=== PATIENT | male | born 1955 ===

== ENCOUNTER 2024-08-04 22:42 | Emergency (ER) | payer MEDICARE ==
[~2024-08-04] VITALS: Ht 185.4 cm; Wt 65.8 kg
--- NOTE | 2024-08-04 23:08 | Physician Documentation ---
History of Present Illness Chief Complaint: Abdominal Pain Stated Complaint: ABDOMINAL PAIN Time Seen by MD: 23:08 Source: patient, family HPI 69-year-old male, history of multiple abdominal surgeries and bowel resection, who presents with abdominal pain and vomiting. He tells me he is traveling from out of town. They stopped and a [employer] food. Shortly afterwards, he develop severe generalized abdominal pain, and then had multiple episodes of vomiting. He states that after vomiting his pain has somewhat improved. He also then started to have some loose bowel movements. He reports a history of similar episodes in the past. He has been told sometimes that he has bowel blockages. He states it sometimes he just gets pain medication and his symptoms resolve without needing further intervention. No fevers, chills, or other infectious type symptoms. He does not take any medications for his symptoms. Medication Reconciliation Allergies: Coded Allergies: No Known Allergies (Unverified , 08/04/24) Past Medical History Past Surgical History: abdominal surgery Review of Systems Constitutional: Denies: fever Gastrointestinal: Reports: abdominal pain, nausea, vomiting, diarrhea Physical Exam Vital Signs: Heart Rate: 91, Respiratory Rate: 15, Pulse Oximetry: 97, Weight: 65.800 Physical Exam General: This is a pleasant and overall well-appearing middle-aged man, at bedside HEENT: Atraumatic, oropharynx is moist Heart: Mild tachycardic, appears regular Lungs: normal work of breathing, normal oxygen saturation on room air Abdomen: Soft, no significant distention. He does not have significant tenderness to deep palpation in all quadrants, no rebound or guarding. He does have multiple well-healed surgical scars over the abdomen Extremities: Warm and well-perfused Neuro: Alert and oriented, no focal deficits Psychiatric: Calm and cooperative with exam Progress Results/Orders Results/Orders Vital Signs 08/04/24 22:56 Pulse 91 Resp 15 Pulse Ox 97 Medical Decision Making Additional info obtained from: family Differential Dx:Considerations: Include: AAA, Bowel obstruction, Gastritis/PUD, Gastroenteritis Additional Comments Differential includes food poisoning or intermittent bowel blockage Assessment Here in the ED, the patient presents after severe abdominal pain with vomiting, which has significantly improved. At time of my evaluation he has a benign abdominal exam including no significant tenderness in all quadrants, no rebound or guarding or other evidence of a surgical abdomen. He did start having loose bowel movements. After shared decision-making conversation, we decided to proceed with symptomatic treatment only. I did offer to perform laboratory te sting and CT imaging of his abdomen, but he declined. He was instead given pain and nausea medication and he will be discharged. He will try to sleep through the night. If he has worsening symptoms he will return here for further evaluation. Overall, the exact cause of the symptoms is unclear, but I suspect it is either food poisoning or a temporary bowel blockage. Departure Time of Disposition: 23:28 Disposition: 01 HOME / SELF CARE / HOMELESS Impression: Primary Impression: Abdominal pain Condition: Improved Discharge Instructions: Food Poisoning Referrals: NO PRIMARY CARE PROVIDER (PCP) Comments Hopefully this is just food poisoning. If you do develop worsening symptoms like unbearable pain or uncontrollable vomiting, you should return to the emergency department like we discussed, to evaluate for bowel obstruction or other more dangerous process. Education Educated: Patient, Family Educated regarding: treatment, need for follow up Signature Scribe Signature: juan jose Attestation: JACK Rome MD Aug 04, 2024 23:08
[2024-08-04] MEDS: ondansetron 4mg rapidly disintigrating tab PO ONE (23:28)
[2024-08-04] MEDS: morphine 4 MG/ML inj SYRINge IM ONE (23:30)
[2024-08-04 23:33] VITALS: PULSE 78; RESP 16; TEMP 98.3; O2SAT 98
== END 2024-08-04 23:37 | disposition home or self-care (01) ==
LOC: ER 22:43
DX: R10.84 Generalized abdominal pain (principal); R11.10 Vomiting, unspecified
CPT/HCPCS: 96372; 99283; J2270